=== PATIENT | female | born 1945 | race Caucasian/White ===

== ENCOUNTER 2016-11-15 20:31 | Outpatient (CLI) | payer MEDICARE, OTHER | END 2016-11-15 20:32 | disposition short-term general hospital (02) | LOC: EMS 20:31 | PROVIDERS: ATTEND Surgery | DX: R47.81 Slurred speech (principal); R26.2 Difficulty in walking, not elsewhere classified | CPT/HCPCS: A0425; A0429 ==

== ENCOUNTER 2018-08-30 14:37 | Outpatient (CLI) | payer MEDICARE, OTHER ==
--- NOTE | 2018-08-30 15:27 | XRAY Report ---
Reason: RIGHT ROTATOR CUFF Procedure Date: 08/30/2018 Accession Number: [id number] / [id number] Procedure: XRN - Shoulder 3 View RT CPT Code: FULL RESULT: EXAM: RIGHT SHOULDER RADIOGRAPHY EXAM DATE: 08/30/2018 03:09 PM. CLINICAL HISTORY: Right rotator cuff. COMPARISON: None. TECHNIQUE: 3 views. FINDINGS: Bones: Normal. No fracture or bone lesion. Joints: The glenohumeral and acromioclavicular joints are normally located with mild AC joint and glenohumeral joint degenerative changes. Soft tissues: The visualized hemithorax is unremarkable. No soft tissue swelling. IMPRESSION: Degenerative changes without fracture or dislocation identified. [facility]
== END 2018-08-30 14:38 | disposition home or self-care (01) ==
LOC: DI.N 14:37
PROVIDERS: ATTEND Specialist
DX: M19.011 Primary osteoarthritis, right shoulder (principal)

== ENCOUNTER 2019-01-24 13:03 | Outpatient (CLI) | payer MEDICARE, OTHER ==
--- NOTE | 2019-01-26 05:12 | XRAY Report ---
Reason: SHOULDER PAIN Procedure Date: 01/24/2019 Accession Number: [id number] / [id number] Procedure: XRN - Shoulder 2 View RT CPT Code: FULL RESULT: EXAM: RIGHT SHOULDER RADIOGRAPHY EXAM DATE: 01/24/2019 01:31 PM. CLINICAL HISTORY: SHOULDER PAIN. COMPARISON: SHOULDER 3 VIEW RT 08/30/2018 3:10 PM. TECHNIQUE: 3 views. FINDINGS: Bones: Normal. No fracture or bone lesion. Joints: Degenerative changes of the acromioclavicular and glenohumeral joints. Soft tissues: The visualized hemithorax is unremarkable. No soft tissue swelling. IMPRESSION: Osteoarthritis. No evidence of acute fracture. [facility]
--- NOTE | 2019-01-26 05:19 | XRAY Report ---
Reason: HIP PAIN Procedure Date: 01/24/2019 Accession Number: [id number] / [id number] Procedure: XRN - Hip w/Pelvis 2-3V RT CPT Code: FULL RESULT: EXAM: RIGHT HIP RADIOGRAPHY EXAM DATE: 01/24/2019 01:47 PM. CLINICAL HISTORY: HIP PAIN. COMPARISON: None. TECHNIQUE: 2 views. FINDINGS: Bones: Normal. No fractures or bone lesion. Joints: Mild osteoarthritis. No dislocation. Soft Tissues: Normal. No soft tissue swelling. IMPRESSION: Mild osteoarthritis. No evidence of acute fracture. [facility]
--- NOTE | 2019-01-26 05:19 | XRAY Report ---
Reason: RIB PAIN Procedure Date: 01/24/2019 Accession Number: [id number] / [id number] Procedure: XRN - Ribs 2 View RT CPT Code: FULL RESULT: EXAM: RIGHT RIB RADIOGRAPHY EXAM DATE: 01/24/2019 01:47 PM. CLINICAL HISTORY: RIB PAIN. COMPARISON: SHOULDER 2 VIEW RT 01/24/2019 1:31 PM. TECHNIQUE: 2 views. FINDINGS: Bones: Normal. No fracture or bone lesion. Lungs: No focal opacities evident in the visualized right lung. No pneumothorax or pleural effusion. Mediastinum: Heart and cardiomediastinal contours are unremarkable. Other: None. IMPRESSION: No displaced rib fracture identified. [facility]
== END 2019-01-24 13:04 | disposition home or self-care (01) ==
LOC: DI.N 13:03
PROVIDERS: ATTEND Physician Assistant
DX: M19.011 Primary osteoarthritis, right shoulder (principal); R07.81 Pleurodynia; M16.11 Unilateral primary osteoarthritis, right hip

== ENCOUNTER 2020-04-28 07:57 | Outpatient (CLI) | payer MEDICARE, OTHER | END 2020-04-28 07:58 | disposition EMS.NT | LOC: EMS 07:57 | PROVIDERS: ATTEND Surgery | DX: M54.5 Low back pain (principal) ==

== ENCOUNTER 2020-04-28 09:23 | Outpatient (CLI) | payer MEDICARE, OTHER | END 2020-04-28 09:24 | disposition short-term general hospital (02) | LOC: EMS 09:23 | PROVIDERS: ATTEND Surgery | DX: M54.9 Dorsalgia, unspecified (principal) | CPT/HCPCS: A0425; A0429 ==

== ENCOUNTER 2020-04-29 20:45 | Outpatient (CLI) | payer MEDICARE, OTHER | END 2020-04-29 20:46 | disposition short-term general hospital (02) | LOC: EMS 20:45 | PROVIDERS: ATTEND Surgery | DX: R41.82 Altered mental status, unspecified (principal) | CPT/HCPCS: A0425; A0429 ==

== ENCOUNTER 2020-05-04 13:31 | Outpatient (CLI) | payer MEDICARE, OTHER | END 2020-05-04 13:32 | disposition short-term general hospital (02) | LOC: EMS 13:31 | PROVIDERS: ATTEND Surgery | DX: R40.4 Transient alteration of awareness (principal) | CPT/HCPCS: A0425; A0427 ==

== ENCOUNTER 2020-05-13 08:00 | Outpatient (CLI) | payer MEDICARE, OTHER ==
[2020-05-13 15:20] LABS: BILIRUBIN,URINE NEGATIVE (NEGATIVE); GLUCOSE, URINE (UA) NEGATIVE (NEGATIVE); KETONES,URINE (UA) NEGATIVE (NEGATIVE); LEUKOCYTE ESTERASE, URINE SMALL (NEGATIVE); NITRITE,URINE POSITIVE (NEGATIVE); OCCULT BLOOD,URINE TRACE-INTA (NEGATIVE); PH,URINE 6.5 PH (5.0-7.5); PROTEIN,URINE TRACE mg/dL (NEGATIVE); UROBILINOGEN,URINE 0.2 (NORMAL) E.U./dL (NORMAL)
[2020-05-13 15:28] LABS: CLARITY,URINE HAZY (CLEAR)
[2020-05-13 16:13] LABS: BACTERIA,URINE Few /HPF (None Seen); RBC,URINE 0-5 /HPF (0-5); SQUAMOUS EPITHELIAL CELL,UR MOD Squamous (<= Few)
== END 2020-05-13 23:59 | disposition home or self-care (01) ==
LOC: LAB.N 08:00
PROVIDERS: ATTEND Internal Medicine
DX: N39.0 Urinary tract infection, site not specified (principal)
CPT/HCPCS: 81001; 87086

== ENCOUNTER 2020-05-15 09:53 | Outpatient (CLI) | payer MEDICARE, OTHER | END 2020-05-15 09:54 | disposition short-term general hospital (02) | LOC: EMS 09:53 | PROVIDERS: ATTEND Surgery | DX: R52 Pain, unspecified (principal) | CPT/HCPCS: A0425; A0429 ==

== ENCOUNTER 2020-07-09 11:15 | Outpatient (CLI) | payer MEDICARE, OTHER | END 2020-07-09 11:16 | disposition short-term general hospital (02) | LOC: EMS 11:15 | DX: R00.1 Bradycardia, unspecified (principal); R07.89 Other chest pain | CPT/HCPCS: A0425; A0429 ==